=== PATIENT | male | born 1970 | race Caucasian/White ===

== ENCOUNTER 2017-10-20 08:57 | Outpatient (RCR) | payer MEDICAID, SELFPAY ==
[2017-09-22 01:04] VITALS: BP 143/100; PULSE 74; RESP 20; TEMP 36.9; BMI 33.5
== END 2017-10-22 23:59 ==
LOC: WC 08:57
PROVIDERS: Family Provider Preventive Medicine Occupational Medicine; PCP Preventive Medicine Occupational Medicine; Visit Provider Surgery
DX: Z09 Encounter for follow-up examination after completed treatment for conditions other than malignant neoplasm (principal)